=== PATIENT | male | born 1980 | race American Indian/Alaskan Native ===

== ENCOUNTER 2016-08-11 14:06 | Emergency (ER) | payer SELFPAY ==
--- NOTE | 2016-08-11 14:44 | Emergency Department Report ---
HPI - General Chief Complaint: Seizure Time Seen by Provider: 08/11/16 14:32 - HPI HPI: This is a 36-year-old Afro-[place] Citizen male presents to the emergency department by EMS from a [employer] parking lot where the patient had a witnessed seizure. He says he was there talking to one of the pharmacy people and then woke up in the emergency department. He has a history of seizures but admits to being out of his Dilantin for the past week. He also admits to a history of crack cocaine use, with the last time using 2 days ago. He says that his last seizure was about 2 days ago as well. He does not currently have a primary care doctor or neurologist. No recent travel or sick contacts at home. Patient currently says he has no physical complaints and is asymptomatic. ED Past Medical Hx - Past Medical History Previous Medical History?: Yes Hx Seizures: Yes - Surgical History Past Surgical History?: No - Social History Smoking Status: Never Smoker Substance Use Type: None - Medications Home Medications: Home Medications Medication Instructions Recorded Confirmed Last Taken Type Phenytoin Sodium Extended 100 mg PO QPM #30 capsule 08/11/16 Unknown Rx Phenytoin Sodium Extended 200 mg PO QAM #30 capsule 08/11/16 Unknown Rx ED Review of Systems ROS: Stated complaint: SEIZURE Other details as noted in HPI Comment: All other systems reviewed and negative Constitutional: denies: chills, fever Eyes: denies: eye pain, eye discharge, vision change ENT: denies: ear pain, throat pain Respiratory: denies: cough, shortness of breath, wheezing Cardiovascular: denies: chest pain, palpitations Gastrointestinal: denies: abdominal pain, nausea, diarrhea Genitourinary: denies: urgency, dysuria Musculoskeletal: denies: back pain, joint swelling, arthralgia Skin: denies: rash, lesions Neurological: other (seizure). denies: headache, weakness, paresthesias Physical Exam - Physical Exam Vital Signs: Vital Signs 08/11/16 14:25 Temperature 98.6 F Pulse Rate 74 Respiratory 16 Rate Blood Pressure 115/52 [Left] O2 Sat by Pulse 99 Oximetry Physical Exam: GENERAL: The patient is well-developed well-nourished. HEENT: Normocephalic. Atraumatic. Extraocular motions are intact. Patient has moist mucous membranes. Pupils equal reactive to light bilaterally. NECK: Supple. Trachea is midline. CHEST/LUNGS: Clear to auscultation. There is no respiratory distress noted. HEART/CARDIOVASCULAR: Regular. There is no tachycardia. There is no gallop rub or murmur. ABDOMEN: Abdomen is soft, nontender. Patient has normal bowel sounds. There is no abdominal distention. SKIN: There is no rash. There is no edema. There is no diaphoresis. NEURO: The patient is awake, alert, and oriented. The patient is cooperative. The patient has no focal neurologic deficits. The patient has normal speech. Cranial nerves II through XII grossly intact. No pronator drift. No dysmetria. MUSCULOSKELETAL: There is no tenderness or deformity. There is no limitation range of motion. There is no evidence of acute injury. Muscle strength 5 out of 5 for upper and lower extremity bilaterally. ED Course Vital Signs 08/11/16 14:25 Temperature 98.6 F Pulse Rate 74 Respiratory 16 Rate Blood Pressure 115/52 [Left] O2 Sat by Pulse 99 Oximetry ED Medical Decision Making - Lab Data Result diagrams: 08/11/16 14:46 08/11/16 14:46 - Medical Decision Making 36-year-old male with a history of seizures presents after having a seizure this morning at [facility]. Patient is been awake, alert since being in the emergency department. He has no focal, motor or sensory deficits and no cranial nerve deficits. The patient admits to recent crack cocaine use and this could be something that lowers his seizure threshold. On top of that, the patient has been noncompliant with his phenytoin medication for the past week. His Dilantin level was 1.2. He was given a large loading dose of 300 mg here. The rest the patient's labs and unremarkable. Since patient does have a history of epilepsy and there was only 1 seizure today, no CT imaging of the head was done at this time. Patient was reevaluated multiple times for multiple hours and has remained awake alert and stable. He'll be discharged home with a refill of his phenytoin and was given referrals for primary care and neurology. - Differential Diagnosis epilepsy, substance abuse, pseudoseizures, hypoglycemia Critical Care Time: No Critical care attestation.: If time is entered above; I have spent that time in minutes in the direct care of this critically ill patient, excluding procedure time. ED Disposition Clinical Impression: Seizure, Noncompliance with medication regimen Disposition: DISCHARGED TO HOME OR SELFCARE Is pt being admited?: No Condition: Stable Instructions: Epilepsy (ED) Additional Instructions: Please follow-up with a primary care doctor and neurologist as soon as possible. Return to the emergency department with any worsening of your symptoms or any acute distress. I have prescribed for you your antiseizure medications for you to restart. Prescriptions: Phenytoin Sodium Extended 100 mg PO QPM #30 capsule Phenytoin Sodium Extended 200 mg PO QAM #30 capsule Referrals: PRIMARY CAREMD [Primary Care Provider] - 3-5 Days THAIS MCKNIGHT MD [Staff Physician] - 3-5 Days SHIRA VALLECILLO MD, PHD [Staff Physician] - 3-5 Days [facility] [Outside] - 3-5 Days Time of Disposition: 17:13
[2016-08-11 15:17] LABS: Hematocrit 36.2 % (35.5-45.6); Hemoglobin 12.1 gm/dl (11.8-15.2); Mean Corpuscular HGB Conc 33 % (32-34); Mean Corpuscular Hemoglobin 30 pg (28-32); Mean Corpuscular Volume 90 fl (84-94); Platelet Count 181 K/mm3 (140-440); Red Blood Count 4.02 M/mm3 (3.65-5.03); Red Cell Distribution Width 14.7 % (13.2-15.2); White Blood Count 7.8 K/mm3 (4.5-11.0)
[2016-08-11 15:36] LABS: Alanine Aminotransferase 11 units/L (7-56); Albumin 4.2 g/dL (3.9-5); Albumin/Globulin Ratio 1.4 %; Alkaline Phosphatase 86 units/L (35-129); Anion Gap 17 mmol/L; BUN/Creatinine Ratio 12.22; Bilirubin,Total 0.5 mg/dL (0.1-1.2); Blood Urea Nitrogen 11 mg/dL (9-20); Calcium 8.8 mg/dL (8.4-10.2); Carbon Dioxide 26 mmol/L (22-30); Chloride 99.6 mmol/L (98-107); Glucose 80 mg/dL (75-100); Potassium 3.8 mmol/L (3.6-5.0); Sodium 139 mmol/L (137-145); Total Protein 7.3 g/dL (6.3-8.2)
[2016-08-11] MEDS ORDERED: DILANTIN PO ONE (15:56)
[2016-08-11 17:25] VITALS: BP 118/66
== END 2016-08-11 17:24 | disposition home or self-care (01) ==
LOC: ED 14:06
DX: R56.9 Unspecified convulsions (principal)
CPT/HCPCS: 36415; 80053; 80185; 82550; 84443; 85027; 93005; 93010; 99284; G0480; 80320

== ENCOUNTER 2018-08-16 07:47 | Inpatient (IN) | payer OTHER ==
[2018-08-16] MEDS ORDERED: ATIVAN ONE (07:53)
[2018-08-16] MEDS ORDERED: ATIVAN IM ONE (07:54)
[2018-08-16] MEDS ORDERED: KETALAR ONE (07:55)
[2018-08-16] MEDS ORDERED: KETALAR IM ONE (07:56)
[2018-08-16] MEDS ORDERED: NACL 0.9% 1000 ML 1,000 ML IV ONE (08:13)
[2018-08-16 08:31] LABS: Basophils % (Auto) 0.1 % (0.0-1.8); Eosinophils % (Auto) 0.2 % (0.0-4.3); Hematocrit 40.6 % (35.5-45.6); Hemoglobin 13.6 gm/dl (11.8-15.2); Lymphocytes % (Auto) 8.2 % (13.4-35.0); Mean Corpuscular HGB Conc 34 % (32-34); Mean Corpuscular Volume 90 fl (84-94); Monocytes # (Auto) 0.4 K/mm3 (0.0-0.8); Monocytes % (Auto) 3.6 % (0.0-7.3); Platelet Count 272 K/mm3 (140-440); Red Cell Distribution Width 14.5 % (13.2-15.2)
[2018-08-16 08:39] LABS: Amphetamine Screen,Urine PRESUMPTIVE NEGATIVE; Benzodiazepines Screen,Urine PRESUMPTIVE NEGATIVE; Cannabinoid Screen,Urine PRESUMPTIVE NEGATIVE; Cocaine Screen,Urine PRESUMPTIVE NEGATIVE; Methadone Screen,Urine PRESUMPTIVE NEGATIVE; Opiate Screen,Urine PRESUMPTIVE NEGATIVE
[2018-08-16 08:54] LABS: INR 1.56 (0.87-1.13)
[2018-08-16 08:55] LABS: Partial Thromboplastin Time 24.7 Sec. (24.2-36.6)
[2018-08-16] MEDS ORDERED: SODIUM CHLORIDE FLUSH SYRINGE 10 ML IV NR (09:00)
[2018-08-16] MEDS ORDERED: KEPPRA 1,000 MG in D5W 100 ML IV ONE (09:00)
[2018-08-16 09:01] LABS: Alanine Aminotransferase 16 units/L (7-56); Albumin 4.7 g/dL (3.9-5); BUN/Creatinine Ratio 13; Blood Urea Nitrogen 13 mg/dL (9-20); Calcium 9.3 mg/dL (8.4-10.2); Hemolysis Index 13
--- NOTE | 2018-08-16 09:02 | XRay Report ---
AP CHEST :08/16/18 8:50 CLINICAL: Altered mental status. COMPARISON:None. FINDINGS: Normal heart and pulmonary vasculature for the exam technique. The lungs are slightly underexpanded. Mild subsegmental atelectasis versus scar at the right minor fissure. No airspace disease or pleural effusion. No pneumothorax. The bones and soft tissues are normal.No tubes or lines. IMPRESSION: No CHF or pneumonia.
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
[2018-08-16 09:11] LABS: Bacteria,Urine 1+ /HPF (Negative); Bilirubin,Urine NEG (Negative); Blood,Urine NEG (Negative); Color,Urine Yellow (Yellow); Mucus,Urine FEW /HPF; Urobilinogen,Urine < 2.0 mg/dL (<2.0)
--- NOTE | 2018-08-16 09:33 | Cat Scan Report ---
CT HEAD WITHOUT CONTRAST INDICATION: Altered mental status. COMPARISON: None similar. FINDINGS: Noncontrast head CT demonstrates normal ventricles and sulci without acute or recent infarct, hemorrhage, mass effect or midline shift. No abnormal extra-axial fluid collections. Posterior fossa structures and basilar cisterns within normal limits. Symmetric eye globes. Rightward nasal septal deviation as on axial image 50. Mild left maxillary and sphenoid sinus mucosal thickening anteriorly. Minimal right sphenoid sinus mucosal thickening anteriorly as also right maxillary sinus 0.3 cm polypoid mucosal thickening laterally also possible. Clear imaged ethmoid and frontal sinuses and bilateral mastoid air cells. Intact calvarium. Normal overlying scalp soft tissues. Cervical spondylosis. CONCLUSION: No acute intracranial CT abnormality with few other findings, as described. Thank you for the opportunity to participate in this patient's care.
--- NOTE | 2018-08-16 09:40 | Cat Scan Report ---
CT CERVICAL SPINE WITHOUT CONTRAST INDICATION: Altered mental status. COMPARISON: None similar. FINDINGS: Noncontrast axial, sagittal and coronal CT reconstructions through the cervical spine demonstrate normal intracranial appearance. Mild ethmoid, maxillary and sphenoid sinus mucosal thickening, left more than right. Clear mastoid air cells. Right humeral shaft plate and screw repair incidentally noted on the [employer] view. Motion artifact partly degrades exam. Assessment of the spinal canal compromised from C6 inferiorly. Intact craniocervical articulation with normal dens, lateral masses, predental space, anterior and posterior arches of C1 and the posterior elements. Prevertebral soft tissues not well assessed. Normal imaged thyroid. Air-filled somewhat patulous esophagus, nonspecific. Clear visualized lung apices. C2-C4 levels unremarkable. Mild cervical kyphosis apex about C5 with extensive C5 and C6 degenerative spurring noted with disc narrowing and slight adjacent sclerosis/endplate irregularity. Moderate C6-C7 disc narrowing as well. On the obtained axial images: C5-C6 demonstrates mild bilateral uncovertebral spurring and left more than right neural foraminal narrowing as on axial image 121, series 3. C6-C7 also not excluded for slight left neural foraminal narrowing. CONCLUSION: No acute cervical spine CT abnormality with various findings, including chronic degenerative changes inferiorly, as detailed above. Please correlate. Thank you for the opportunity to participate in this patient's care.
--- NOTE | 2018-08-16 09:56 | Cat Scan Report ---
CT ABDOMEN AND PELVIS WITHOUT CONTRAST INDICATION: Altered mental status, on Coumadin. ?RPA. COMPARISON: None similar. FINDINGS: Noncontrast abdomen and pelvis CT performed. LUNG BASES: Mild cardiomegaly. Mild bibasilar atelectasis posteriorly, left more than right. Right hemidiaphragm slightly higher than the left. Streak artifact from right humeral shaft plate and screw limits exam. Nonspecific air-filled distal esophageal wall prominence/thickening, not excluded for gastroesophageal reflux and/or hiatal hernia, amongst others. ABDOMEN: Please note that sensitivity to detect small visceral lesions is limited due to the absence of intravenous or oral contrast. Grossly unremarkable unenhanced liver, spleen, gallbladder, pancreas, adrenals, aorta and kidneys. IVC filter noted with one of its legs extending into L3 vertebral body. No ascites. Adenopathy assessment limited, though none significant strongly suspected. Nonopacified GI tract evaluation limited, though grossly nonobstructive. Normal appendix. Mild to moderate stool throughout colon/possible constipation. Tiny fat-containing umbilical hernia with a transverse neck of 0.6 cm. PELVIS: Extensive pelvic plate and screw repair creating streak artifact limits exam. Rectosigmoid stool, few small pelvic phleboliths and grossly unremarkable unopacified urinary bladder and prostate/seminal vesicles noted, to the extent assessed. Few bilateral inguinal lymph nodes may measure up to 1.8 cm on the right, axial image 181. Left hemipelvic bony hypertrophic deformities/heterotopic ossifications noted, greatest about the hip. One of the metallic limb from the IVC filter may also extend into the L3 vertebral body as on sagittal image 140, amongst others. CONCLUSION: No acute abdomen or pelvic CT abnormality on this limited, unenhanced exam with various other findings as at the imaged lung bases, one of the legs of the IVC filter noted extending into L3 vertebral body and extensive postsurgical hardware creating streak artifact, amongst others, as described above. Please correlate. Thank you for the opportunity to participate in this patient's care.
[2018-08-16] MEDS ORDERED: SODIUM CHLORIDE FLUSH SYRINGE 10 ML IV PRN (10:21)
[2018-08-16] MEDS ORDERED: ZOFRAN IV PRN (10:21)
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
[2018-08-16] MEDS ORDERED: ATIVAN IV PRN (10:25)
--- NOTE | 2018-08-16 10:26 | Event Note ---
Date: 08/16/[address] scan. IVC filter noted with tilt in the renal vein and infrarenal tines penetrating the IVC into the aorta, adjacent vertebral body, and duodenum. This is likely longstanding as these are usually asymptomatic despite penetration. Patient is not verbal at this time. Will attempt to see patient later today or tomorrow.
[2018-08-16] MEDS ORDERED: DILANTIN 1,000 MG in NACL 0.9% 250ML 250 ML IV ONE (11:00)
[2018-08-16] MEDS ORDERED: TYLENOL PO PRN (11:00)
[2018-08-16] MEDS ORDERED: PROVENTIL IH PRN (11:00)
[2018-08-16] MEDS: SODIUM CHLORIDE FLUSH SYRINGE 10 ML IV SCH ×2 (11:24→21:13)
[2018-08-16] MEDS ORDERED: COUMADIN PO SCH (17:00)
[2018-08-16] MEDS: DILANTIN PO SCH (18:35)
[2018-08-16] MEDS: ABILIFY PO SCH (18:36)
[2018-08-16] MEDS: COUMADIN PO SCH (18:36)
[2018-08-16] MEDS: KEPPRA PO SCH (21:13)
[2018-08-17 06:13] LABS: Basophils % (Auto) 0.3 % (0.0-1.8); Eosinophils # (Auto) 0.1 K/mm3 (0.0-0.4); Eosinophils % (Auto) 0.7 % (0.0-4.3); Hemoglobin 13.3 gm/dl (11.8-15.2); Lymphocytes # (Auto) 1.8 K/mm3 (1.2-5.4); Lymphocytes % (Auto) 22.1 % (13.4-35.0); Mean Corpuscular HGB Conc 33 % (32-34); Mean Corpuscular Volume 91 fl (84-94); Monocytes # (Auto) 0.6 K/mm3 (0.0-0.8); Monocytes % (Auto) 7.5 % (0.0-7.3); Platelet Count 252 K/mm3 (140-440); Red Blood Count 4.42 M/mm3 (3.65-5.03); Red Cell Distribution Width 14.9 % (13.2-15.2)
[2018-08-17 06:25] LABS: INR 1.71 (0.87-1.13)
[2018-08-17 06:32] LABS: Blood Urea Nitrogen 11 mg/dL (9-20)
[2018-08-17 06:33] LABS: BUN/Creatinine Ratio 12; Hemolysis Index 14
[2018-08-17] MEDS ORDERED: NON-FORMULARY (Phenytoin Sodium Extended [Phenytoin Sodium Extended] 200 MG) PO SCH (10:00)
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
[2018-08-17] MEDS: KEPPRA PO SCH ×2 (10:22→21:23)
[2018-08-17] MEDS: ABILIFY PO SCH (10:22)
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
--- NOTE | 2018-08-17 12:08 | Consultation ---
History of Present Illness - Reason for Consult Consult date: 08/17/18 Reason for consult: Mental Health EValuation Requesting physician: ELIDA WILSON - Chief Complaint Chief complaint: 'I'm doing okay" - History of Present Psychiatric Illness 38 y.o. AA male who presented to the ER for AMS. Today the patient is calm and cooperative during the assessment. He stated that he cannot remember everything that happen prior to his arrival to the ER. He stated that he do remember having a seizure and saw lots of people around him. He stated that he became "frantic." He stated that he takes Abilify because of his mood. He stated that his seizure activity started 6 yrs ago. He stated, "Things haven't been the same since." He stated that he saw a psychiatrist in the past. He stated that he want to get his life back on "track." He denies SI/HI's and AVH's. He denies erratic sleep and a poor appetite. He denies recreational drug us and alcohol consumption (etoh). Medications and Allergies Allergies Allergy/AdvReac Type Severity Reaction Status Date / Time Penicillins Allergy Unknown Verified 08/11/16 14:11 Home Medications Medication Instructions Recorded Confirmed Last Taken Type ARIPiprazole [Abilify TAB] 15 mg PO DAILY 08/16/18 08/16/18 Unknown History Phenytoin [Dilantin] 300 mg PO QHS 08/16/18 08/16/18 Unknown History Warfarin [Coumadin] 7.5 mg PO QDAY 08/16/18 08/16/18 Unknown History levETIRAcetam [Keppra] 500 mg PO BID 08/16/18 08/16/18 Unknown History Phenytoin [Dilantin] 100 mg PO QPM capsule.er 08/18/18 Unknown Rx Active Meds: Active Medications Acetaminophen (Tylenol) 650 mg PO Q4H PRN PRN Reason: Pain MILD(1-3)/Fever >100.5/SILVERIO Albuterol (Proventil) 2.5 mg IH Q3HRT PRN PRN Reason: Shortness Of Breath Aripiprazole (Abilify) 15 mg PO QDAY [facility] Last Admin: 08/17/18 10:22 Dose: 15 mg Documented by: Levetiracetam (Keppra) 500 mg PO BID [facility] Last Admin: 08/17/18 10:22 Dose: 500 mg Documented by: Lorazepam (Ativan) 2 mg IV Q1H PRN PRN Reason: Seizures Ondansetron HCl (Zofran) 4 mg IV Q8H PRN PRN Reason: Nausea And Vomiting Phenytoin (Dilantin) 100 mg PO QPM [facility] Last Admin: 08/16/18 18:35 Dose: 100 mg Documented by: Sodium Chloride (Sodium Chloride Flush Syringe 10 Ml) 10 ml IV BID [facility] Last Admin: 08/16/18 21:13 Dose: 10 ml Documented by: Sodium Chloride (Sodium Chloride Flush Syringe 10 Ml) 10 ml IV PRN PRN PRN Reason: LINE FLUSH Warfarin Sodium (Coumadin) 10 mg PO DAILY@1700 [facility]; Protocol Last Admin: 08/16/18 18:36 Dose: 10 mg Documented by: Past psychiatric history - Past Medical History Past Medical History: seizures Past Surgical History: No surgical history - past Psychiatric treatment and history psychiatric treatment history: Hx of mood 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 Denies a fam psy hx. - Social History Social history: Lives alone Mental Status Exam - Vital signs Last Vital Signs Temp 98.0 F 08/17/18 05:30 Pulse 78 08/17/18 05:30 Resp 16 08/17/18 05:30 BP 104/57 08/17/18 05:30 Pulse Ox 100 08/17/18 05:30 - Exam Narrative exam: MSE: Appearance: calm, cooperative Behavior: regular eye contact Speech: regular rate and tone Mood: "okay" Affect: congruent to mood Thought Process: logical Thought Content: denies SI/HI's and AVH's Motor Activity: ambulatory Cognition: A/O x3 Insight: appropriate Judgment: appropriate Results Result Diagrams: 08/17/18 04:57 08/17/18 04:57 Abnormal lab results 08/16/18 08/17/18 08/17/18 Range/Units 07:54 04:57 04:57 [place] % (Auto) 7.5 H (0.0-7.3) % PT 21.2 H (12.2-14.9) Sec. INR 1.71 H (0.87-1.13) POC Glucose 137 H (70-105) All other labs normal. 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 No overt psychosis with the patient. Today the patient calm and cooperative during the assessment. The patient's behavior prior to his arrival to the ER could have stem from residual from the seizure he experienced. Medical: Hx of seizures Recommendation/Plan: Continue home medication Abilify 15 mg PO daily. Discussed possible metabolic side effects of Abilify with the patient, he verbalized understanding. Psy signs off. Dispo The patient can follow up with [facility] for outpatient psy services. Stafedf with Dr. Abrahan Belcher.
[2018-08-17] MEDS: SODIUM CHLORIDE FLUSH SYRINGE 10 ML IV SCH ×2 (14:10→21:23)
[2018-08-17] MEDS: COUMADIN PO SCH (17:31)
[2018-08-17] MEDS: DILANTIN PO SCH (17:31)
[2018-08-18 06:12] LABS: INR 2.29 (0.87-1.13)
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
[2018-08-18] MEDS: ABILIFY PO SCH (09:48)
[2018-08-18] MEDS: KEPPRA PO SCH (09:48)
[2018-08-18] MEDS: SODIUM CHLORIDE FLUSH SYRINGE 10 ML IV SCH (09:49)
[2018-08-18 10:06] VITALS: BP 108/70
== END 2018-08-18 11:10 | disposition home or self-care (01) | DRG 71 ==
LOC: ED 07:47 → 3A 10:19 → OBSVTOIN 08-17 12:02
PROVIDERS: ADMIT Internal Medicine; ATTEND Internal Medicine
DX: G93.40 Encephalopathy, unspecified (principal); D68.69 Other thrombophilia; Z95.828 Presence of other vascular implants and grafts; D72.829 Elevated white blood cell count, unspecified; Z60.2 Problems related to living alone; F29 Unspecified psychosis not due to a substance or known physiological condition; G40.909 Epilepsy, unspecified, not intractable, without status epilepticus; Z88.0 Allergy status to penicillin; Z86.718 Personal history of other venous thrombosis and embolism; Z79.51 Long term (current) use of inhaled steroids
CPT/HCPCS: 36415; 70450; 71045; 72125; 74176; 80048; 80053; 80185; 80307; 80320; 81001; 82550; 82962; 84484; 85025; 85610; 85730; 93005; 93010; 96365; 96367; 96372; G0378; G0480; J1165; J1953; J2060; J7030; J7050